=== PATIENT | female | born 1950 | race Caucasian/White ===

== ENCOUNTER 2016-05-15 10:41 | Inpatient (IN) | payer OTHER ==
[~2016-05-15] VITALS: Ht 174 cm; Wt 81.4 kg
[~2016-05-15 10:41] MED LIST: ALENDRONATE SOD70 MG PO; ANTACID PLUS A PO; ANTACID500 MG PO; ASCORBIC ACID500 M3 PO; ASCORBIC ACID500 MG PO; ASPIR-LOW81 MG PO; Ascorbic Acid,Ester- PO; B COMPLEX #11 EACH PO; B COMPLEX1 EAC2 PO; B-COMPLEX-VITA1 EACH PO; BENZTROPINE MESY2 MG PO; CAL-GEST500 MG PO; CALCIUM500 M4 PO; CEFTIN500 MG PO; CELEXA PO; CELEXA20 MG PO; CELEXA40 MG PO; CENTRUM SILVER1 EAC3 PO; CIPRO250 MG PO; CITALOPRAM HBR20 MG PO; COGENTIN2 MG PO; Cogentin PO; DAILY VITE1 EAC1 PO; DETROL LA4 MG PO; DOXYCYCLINE HY100 MG PO; DUEXIS 800-26.1 EACH PO; DULCOLAX10 MG PR; Ditropan PO; Dulcolax PO; ECOTRIN325 MG PO; EFFEXOR XR37.5 MG PO; Ecotrin PO; FERGON324 MG PO; FERRONATE325 MG PO; FERROUS GLUCON324 MG PO; FERROUS SULFAT324 M1 PO; FLEET ENEMA-AD118 ML PR; FLORANEX CHE1 TABLET PO; Feosol PO; GABAPENTIN300 MG PO; GABAPENTIN600 MG PO; GLUCOTROL5 MG PO; HEMOCYTE324 MG PO; IMDUR60 MG PO; IMIPRAMINE HCL25 MG PO; KEFLEX500 MG PO; KENALOG IN ORABA5 GM DT; LANSOPRAZOLE30 MG PO; LASIX20 MG PO; LEVOTHYROXINE125 MCG PO; LIDODERM 5% P1 PATCH TD; LISINOPRIL10 MG PO; LO-DOSE ASPIRIN81 M1 PO; LOPRESSOR25 MG PO; LORCET 5-325 M1 EACH PO; LOW DOSE ASPIRI81 M1 PO; Levothroid,Synthroid PO; Lovenox SC; MAGOX 400400 MG PO; METHENAMINE HIPP1 G1 PO; MILK OF MAGN PO; NEPHROCAPS SOFTG1 MG PO; NEURONTIN600 MG PO; NEXIUM40 MG PO; NYSTATIN15 GM TP; Neurontin PO; OXYBUTYNIN CHLO10 MG PO; Oscal 500 w/Vitamin PO; OxyCONTIN PO; POTASSIUM-9999 MG PO; PREMARIN VAGI42.5 GM VG; PREVACID PO; PREVACID30 MG PO; PRILOSEC20 MG PO; Percocet 5/325,Endoc PO; Protonix PO; SIMVASTATIN40 MG PO; SUCRALFATE1 GM PO; SYNTHROID125 MCG PO; Senokot S,Pericolace PO; THERAGRAN1 TABLET PO; TIZANIDINE HCL4 M1 PO; TIZANIDINE HCL4 MG PO; TOFRANIL25 MG PO; TRAMADOL HCL50 MG; TRAMADOL HCL50 MG PO; TRICOR48 MG PO; TUMS DUAL ACTI1 EACH PO; TUMS500 MG PO; TYLENOL REGULA325 MG PO; Theragran PO; Tofranil PO; Tums,OsCal PO; ULTRAM50 MG PO; VAGIFEM10 MCG VG; VESICARE10 MG PO; VESICARE5 MG PO; VITAMIN D1000 INTUN PO; VITAMIN D31000 UNI2 PO; VITAMIN D31000 UNIT PO; VITAMIN E1000 UNI1 PO; VITAMIN E400 UNI6 PO; Vibramycin, Doryx PO; Vicodin,Norco 5/325 PO; Vitamin B Complex PO; Vitamin D PO; WELLBUTRIN SR150 MG PO; WESTCORT 0.2% C15 GM TP; ZANAFLEX4 M1 PO; ZANAFLEX4 MG PO; ZOCOR40 MG PO; Zocor PO; celeXA PO
[2016-05-15 11:20] LABS: BASOPHIL COUNT 0.1 K/uL (0-0.1); EOSINOPHIL (%) 5.7 % (0-5); EOSINOPHIL COUNT 0.3 K/uL (0-0.3); HEMATOCRIT 39.1 % (36.0-46.0); IMMATURE GRANULOCYTE (%) 0.2 % (0.0-0.7); INSTRUMENT ABS NEUTROPHIL CT 3.6 K/uL; LYMPHOCYTE COUNT 1.5 K/uL (1.0-2.8); MCH 31.3 PG (29.0-34.0); MCHC 32.2 G/DL (30.0-36.0); MCV 97.3 FL (83-99); MEAN PLAT.VOLUME 10.4 uM^3 (9.5-12.4); MONOCYTE COUNT 0.4 K/uL (0-0.8); NEUTROPHIL COUNT 3.6 K/uL (1.8-6.4); PLATELET COUNT 254 K/uL (156-360); RBC DIS.WIDTH-CV 12.1 % (11.8-14.6); RBC DIS.WIDTH-SD 43.6 % (39-53); RED BLOOD COUNT 4.02 M/uL (3.80-5.20); WHITE BLOOD COUNT 5.8 K/uL (4.1-10.2)
[2016-05-15 11:30] LABS: CHLORIDE 109 mEq/L (99-109); POTASSIUM 4.3 mEq/L (3.7-5.4); SODIUM 144 mEq/L (136-147)
[2016-05-15 11:32] LABS: GLUCOSE 81 mg/dL (70-99)
[2016-05-15 11:33] LABS: ANION GAP 9 MEQ/L (2-14)
[2016-05-15 11:36] LABS: GFR ESTIMATE (CALCULATED) > 59 mL/min/; UREA NITROGEN (BUN) 23 mg/dL (9-23)
[2016-05-15 11:42] LABS: TROP-I INTERPRETATION NEGATIVE; TROPONIN-I < 0.01 ng/mL (0.0-0.30)
[2016-05-15] MEDS ORDERED: BAYER BACK & B1 EACH PO (14:36)
[2016-05-15] MEDS ORDERED: SANCTURA20 MG PO (14:37)
[2016-05-15] MEDS ORDERED: ARTIFICIAL TEAR1510 BOTH EYES (14:37)
[2016-05-15] MEDS ORDERED: MELOXICAM15 MG PO (14:38)
[2016-05-15] MEDS ORDERED: ERGOCALCIF50000 UNIT PO (14:38)
[2016-05-15 15:13] VITALS: BP 141/70
[2016-05-15 19:12] LABS: TROP-I INTERPRETATION NEGATIVE; TROPONIN-I < 0.01 ng/mL (0.0-0.30)
[2016-05-15 19:36] VITALS: BP 119/59
[2016-05-15 23:10] LABS: ADD MIUA? YES; BILIRUBIN NEGATIVE; BLOOD NEGATIVE; COLOR YELLOW ((YELLOW)); GLUCOSE (STRIP) NEGATIVE; KETONES NEGATIVE; LEUKOCYTES MODERATE; NITRITE POSITIVE; PROTEIN (STRIP) NEGATIVE; SPECIFIC GRAVITY 1.012 (1.000-1.030); UROBILINOGEN 0.2 MG/DL (0.2-1.0)
[2016-05-15 23:19] LABS: BACTERIA 1+ /HPF; EPITHELIAL CELLS RARE /HPF; MUCUS TRACE /LPF; RED BLOOD CELLS 30-40 /HPF (0-5); UCUL ADDED? NO; WHITE BLOOD CELLS 30-40 /HPF (0-5)
[2016-05-15 23:56] VITALS: BP 118/82
[2016-05-16 01:18] LABS: TROP-I INTERPRETATION NEGATIVE; TROPONIN-I < 0.01 ng/mL (0.0-0.30)
[2016-05-16 03:30] VITALS: BP 126/60
[2016-05-16 07:37] VITALS: BP 128/64
[2016-05-16 12:08] VITALS: BP 135/72
[2016-05-16 16:04] VITALS: BP 123/58
[2016-05-16 21:15] VITALS: BP 119/68
[2016-05-17 00:23] VITALS: BP 130/62
[2016-05-17 00:25] VITALS: BP 136/66; BP 142/78
[2016-05-17 05:54] VITALS: BP 132/75
[2016-05-17 07:45] VITALS: BP 130/64
[2016-05-17 11:43] VITALS: BP 110/58
[2016-05-17 15:51] VITALS: BP 140/70
[2016-05-17] MEDS ORDERED: EYE WASH SOLUT BOTH EYES (16:22)
[2016-05-17] MEDS ORDERED: POLYTRIM EYE DR10 ML LEFT EYE (16:22)
== END 2016-05-17 17:15 | disposition home health service (06) | DRG 149 ==
LOC: EME 10:41 → EDOF 13:50 → 5WEST 13:50 → EDOF 13:54 → 5WEST 14:57
PROVIDERS: Emergency Medicine; Internal Medicine; Physician Assistant Medical
DX: R42 Dizziness and giddiness (principal); N39.0 Urinary tract infection, site not specified; N31.9 Neuromuscular dysfunction of bladder, unspecified; I10 Essential (primary) hypertension; E86.0 Dehydration; S01.81XA Laceration without foreign body of other part of head, initial encounter; R26.81 Unsteadiness on feet; G24.01 Drug induced subacute dyskinesia; D64.9 Anemia, unspecified; E03.9 Hypothyroidism, unspecified; I25.10 Atherosclerotic heart disease of native coronary artery without angina pectoris; R07.89 Other chest pain; E78.5 Hyperlipidemia, unspecified; G43.909 Migraine, unspecified, not intractable, without status migrainosus; Z96.652 Presence of left artificial knee joint; Z87.891 Personal history of nicotine dependence; Z87.440 Personal history of urinary (tract) infections
CPT/HCPCS: 70450; 70551; 71010; 80048; 81003; 84484; 85025; 93005; 93306; 93880; 94799; 99281; 99285; G0378; G8978 GP CJ; G8979 GP CI; G8987 GO CM; G8988 GO CH; J0696; J1650; J7030; J7050